=== PATIENT | female | born 1950 | race Caucasian/White ===

== ENCOUNTER 2022-09-28 16:30 | Outpatient (RCR) | payer MEDICARE, SELFPAY ==
--- NOTE | 2022-08-24 16:34 | OT.OPOE ---
OT Outpatient Ortho Eval OT Outpatient Ortho Eval* Start: 08/23/22 13:18 Freq: Status: Active Protocol: Document 08/24/22 12:04 AMB (Rec: 08/24/22 16:30 AMB [id number]) E-signed By Marycruz Robles, OTR/L, CLT, COUNTER HOP OT OP Ortho Eval Details Complexity Complexity Low Insurance Information Insurance Information [facility] Outpatient History/Precautions Current Condition/Medical Diagnosis Referring Provider Dr Moore Treatment Diagnosis RUE TF of the MF Date of Onset Chronic Medical Conditions Metal Implants Other Conditions PMH: (copied from ortho chart) Active Problems (Updated 08/06 @ 14:00 by Nany Quezada ~ RN, RN) Trigger finger, right middle finger (Acute) M65.331 - Trigger finger, right middle finger (ICD-10) Medical History (Updated 08/06 @ 14:00 by Nany Quezada ~ RN, RN) Kidney stone N20.0 - Calculus of kidney ( ICD-10) Surgical History (Updated @ 13:37 by Fany Ruth ~ SIMPLEX PRINTER INSTALLER, SIMPLEX PRINTER INSTALLER) History of total right knee replacement (~2015) Z96.651 - Presence of right artificial knee joint (ICD-10) Medical/Functional History Medical History Reviewed Yes Social History Employment Status [employer] Employed Current Occupation Realtor Critical Job Demands Static Sitting Other Critical Job Demands Typing / writing Ortho Subjective Subjective Subjective Pt states she started noticing tightness and pain in her finger about 4 months ago, does not recall any trauma and does not feel she does a lot of repetitive activities, typing for work but states that's maybe a couple hours per day. Pt states her finger does not lock on a regular basis but it does click and sometimes pops into extension when she has closed her fist and then went to open it. Pt has had some relief with Voltarin. Pain Assessment Pain Present Pain Present Pain Reported Location Right Hand Description Tightness,Sharp,Dull, Achy Intensity 5 Range of Motion and Strength Hand/Finger/Thumb Range of Motion and Strength Hand/Finger/Thumb Range of Motion and 08/24/22 AROM of BUE is WNL with Strength the exception of the RUE 3rd digit. AROM of the RUE MF MP joint is 0-65, PIP is 0-85, DIP is 0-55. Hand Pinch/Cloth Shrinking Tester Strength Comments Comments 08/24/22 Strength testing was deferred today OT Objective Data Hand Hand Dominance Right Additional Information Objective Additional Information 08/24/22 Palpable stenosing noted at the RUE 3rd digit A1 olman when completing composite finger flexion, also quite ttp at the A1 olman of this finger. OT Problems Problems Problems Decreased Strength,Decreased Range of Motion,Decreased Dexterity,Gripping Other Problems Writing,Opening Containers, Fasteners Patient Potential Good Assessment Assessment Assessment Pt presents to OT with complaints of pain and clicking/popping in her RUE 3rd digit, states she also notes generalized weakness in her hand when she has to pull weeds or carry things. Pt will benefit from skilled OT intervention to address pain, weakness and inflammation in the RUE in order to restore, full, pain-free use with ADLs and IADLs. Occupational Therapy Treatment Plan - OP Potential Rehabilitation Potential Good Set Goals Goals Set with Patient Yes Goals Goals 1. Pt will be independent and compliant with HEP in order to resume full, pain-free use of the involved UE. 3 weeks 2. Pt will demonstrate full, pain-free AROM of the involved UE in order to improve ability to grasp and hold. 6 weeks 3. Pt will demonstrate pain- free dielectric tester and pinch strength comparable to the uninvolved side in order to improve functional grasp, hold, reach, and lifting ability needed to complete self-care, leisure tasks, and work activities. 8 weeks. 4. Pt will report at least 5 consecutive days without painful stenosing / catching in her RUE 3rd digit indicating healing and resolution of inflammation. 8 weeks Treatment Plan Treatment Plan Evaluation,Edema Control, Iontophoresis,Joint Mobilization,Manual Therapy, Splinting,Ultrasound, Therapeutic Exercise, Therapeutic Activities,Self Care/Home Management,Education Expected Frequency 1-2x Week Expected Duration 8-10 Weeks Home Program Home Program Home Program Initiated Home Program Specifics Provided training and practice in HEP for differential tendon glides avoiding full motions that cause stenosing. Following demo, pt is able to complete exs with minimal cues. Pt was provided with written inst for home as well. Certification Certification I Certify That: Therapy Services Provided, Therapy Plan Established, Therapy Plan Reviewed Recertification Information Recertification Information Initial Certification Date 08/24/22 Recertification Due Date 11/22/22 Reasons to Continue Skilled Therapy Initiating OT today to address pain, weakness and limited AROM in the RUE hand secondary to TF of the 3rd digit. Rehabilitation Potential Good Continued Plan of Care and Interventions Please see POC above. Provider Signature Shows Agreement With POC & Medical Necessity Physician Comment/Change Comment or Changes Physician NPI Number #
== END 2023-01-02 16:00 | disposition home or self-care (01) ==
PROVIDERS: PCP Family Medicine; Visit Provider Orthopaedic Surgery
DX: M65.331 Trigger finger, right middle finger (principal); Z51.89 Encounter for other specified aftercare
CPT/HCPCS: 97033; 97035; 97110; 97140; 97165; X5282

== ENCOUNTER 2024-06-08 09:27 | Emergency (ER) | payer MEDICARE, SELFPAY ==
--- OUTSIDE RECORDS SUMMARY | 2024-06-08 09:31 | XMS_ITS | Clinical Summary ---
Author Organization [facility] Address [address] [place] [address] Care Team Providers Care Bullet Lubricant Mixer Name Role Phone Needs Pcp, Assignment Primary Care Provider [phone] Source Comments You are receiving this document as you are listed as the primary care provider,follow-up provider, or the patient has been referred to you for consultation.This is in compliance with the Medicare and[facility] Incentive [facility],which states Providers who transition their patient to another setting of careor provider of care or refers their patient to another provider of care shouldprovide summary care record for each transition of care or referral. [employer] Allergies No known active allergies Medications * This document contains information received from the source organization and may not represent a complete record from that organization. CALCIUM-VITAMIN D OR Take 1 Tab by mouth daily. Active Multiple Vitamins-Mineral s (CENTRUM SILVER 50+WOMEN OR) Take 1 Tab by mouth daily. 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 Dr [facility] TMJ arthralgia 12/31/2011 08/25/2012 Immunizations Immunization Administration Dates Next Due Flu Vac Preserv Free (3+yrs) 04/06/2006 Influenza ([place] Only) (Flulaval Quad 0.5, 3+ yr s) 01/18/2016 Influenza IIV3 (Trivalent) F luzone Highdose, 65+ Yrs (17320) 12/11/2019,11/05/2018 Influenza IIV4 (Quadrivalent) 0.5mL (17163) 03/2014 Influenza aIIV3 65+ Years (Fluad) 12/20/2017, Moderna Monovalent 12+ 04/20/2020,03/23/2020 OPV, Trivalent (Orimune or tOPV) 04/22/1986 PCV13 (Prevnar) 08/17/2016 PPSV23 (Pneumovax) 09/19/2017 TDAP (ADACEL) 08/16/2005 Td (7+ yrs) 08/17/2016 Zoster (Zostavax) 03/08/2012 Family History Medical History Relation Name Comments Cancer Father panreatic Cancer, Pancreas[Other] Father kidney stones[Other] Father Cancer, Breast Mother lived to 90 Osteoporosis Mother Other[Other] Mother Cancer, Colon Maternal Grandmother Cancer, Breast Paternal Aunt Cancer Paternal Grandfather prostat e Stroke Paternal Grandmother Cancer, Ovary Negative Family History Relation Name Status Comments Father (Age 65) Mother (Age 90) Maternal Grandmother Paternal Aunt Paternal Grandfather Paternal Grandmother Social History Tobacco Use Types Packs/Day Years Used Date Smoking Tobacco: Some Days Cigarettes 0.3 10 Started: 02/18/2003; Last attempted to quit: 02/18/2013 Smokeless Tobacco: Never Tobacco Cessation:Counseling Given: No Comments:less than 2 a week Alcohol Use Standard Drinks/Week Comments Yes 1 (1 standard drink = 0.6 oz pur e alcohol) rare PHQ-2 Answer Date Recorded PHQ-2 Score 0 09/28/2020 Comments No Sex and Gender Information Value Date Recorded Sex Assigned at Not on file Legal Sex Female 10:44 AM STATISTICAL REPORTING ANALYST Gender Identity Not on file Sexual Orientation Not on file 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 Not on file Not on file Last Filed Vital Signs Vital Sign Reading Time Taken Comments Blood Pressure 132/76 09/28/2020 9:48 AM CDT Pulse 68 09/28/2020 9:48 AM CDT Temperature 37.2 C (99 F) 03/19/2018 1:50 PM STATISTICAL REPORTING ANALYST Respiratory Rate 14 12/21/2015 12:49 PM CDT Oxygen Saturation 96% 11/05/2018 9:11 AM CDT Inhaled Oxygen Concentration - - Weight 91.6 kg (202 lb) 09/28/2020 9:48 AM CDT Height 170.2 cm (5' 7) 09/28/2020 9:48 AM CDT Body Mass Index 31.64 09/28/2020 9:48 AM CDT Plan of Treatment Health Maintenance Due Date Last Done Comments Zoster/Shingles Vaccine (2 of 3) 05/03/2012 03/08/2012 Mammogram 01/26/2021 01/27/2020, 11/19, 10/08/2017, Additional history exists Colonoscopy 07/19/2021 07/20/2011 (Completed) Prediabetes: HGBA1C 09/28/2021 09/28/2020 COVID-19 Vaccine ( season) 2023 04/20/2020, 03/23/2020 Influenza Vaccine (#1) 2023 , 11/05/2018, 12/20/2017, Additional history exists Medicare Annual Wellness Visit 02/19/2024 09/28/2020, 09/19/2017 Cholesterol 09/28/2025 09/28/2020, 11/18, 09/19/2017, Additional history exists RSV Vaccine (1 - 1-dose 75+ series) 07/07/2026 DTaP/Tdap/Td Vaccine (3 - Tdap) 08/17/2026 08/17/2016, 08/16/2005 IPV (Polio) Vaccine Aged Out 04/22/1986 No longe r eligible based on patient's age to complete this topic Dexa Completed 09/05/2015 Hep C Screening (Preventive Services) Completed 09/19/2017 Pneumococcal Vaccine 50+ Yrs Completed 09/19/2017, 08/17/2016 HepA Vaccine Aged Out No longer eligi ble based on patient's age to complete this topic HepB Vaccine Aged Out No longer eligi ble based on patient's age to complete this topic Hib Vaccine Aged Out No longer eligi ble based on patient's age to complete this topic MCV4 Vaccine Aged Out No longer eligi ble based on patient's age to complete this topic Meningococcal B Vaccine Aged Out No l onger eligible based on patient's age to complete this topic Procedures Procedure Name Priority Date/Time Associated Diagnosis Comments HGB A1C Routine 09/28/2020 10:42 AM CDT Impaired fasting glucose LIPID PANEL & DIRECT LDL (IF NEEDED) Routine 09/28/2020 10:42 AM CDT Preventative health care MM MAMMOGRAM SCREENING BILAT W CAD Routine 01/27/2020 3:17 PM STATISTICAL REPORTING ANALYST Visit for screening mammogram HEPATITIS C ANTIBODY, WITH REFLEX Routine 09/19/2017 10:40 AM CDT Need for hepatitis C screening test DXA BONE DENSITY SPINE/HIP Routine 09/05/2015 11:49 AM CDT Menopausal state from Last 3 Months or Most Recently Relevant to Health Maintenance Results * Lipid Panel and Direct LDL(If Needed) (09/28/2020 10:42 AM CDT) Cholesterol 188 0 - 199 mg/dL 09/28/2020 1:02 PM CDT [facility] Triglyceride 59 <=149 mg/dL 09/28/2020 1:02 PM CDT [facility] HDL Cholesterol 72 >=40 mg/dL 1:02 PM CDT [facility] LDL, Calculated 104 <130 mg/dL 1:02 PM CDT [facility] Non HDL Chol, Calculated 116 <=159 mg/dL 09/28/2020 1:02 PM CDT [facility] Cholesterol/HDL Ratio 2.6 09/28/2020 1:02 PM CDT [facility] Hours Fasting 12 09/28/2020 1:02 PM CDT [facility] Blood Venipuncture / Unknown 09/28/2020 10:42 AM CDT 09/28/2020 10:42 AM CDT Basilia Mendez MD LAB_1 Final Resul t [facility] [address] [place], [place] [address] [address] [place] [address], [facility] [phone] * (ABNORMAL) Hemoglobin A1C Glycosylated (09/28/2020 10:42 AM CDT) Hemoglobin A1C 5.7(H) <=5.6 % 09/28/2020 8:36 PM CDT [facility] Blood Venipuncture / Unknown 09/28/2020 10:42 AM CDT 09/28/2020 10:42 AM CDT Narrative [facility] - 09/28/2020 8:36 PM CDT For patients not previously diagnosed with diabetes: 5.7-6.4%: Increased risk for diabetes 6.5% and greater: Diagnostic for diabetes For patients diagnosed with diabetes: <8.0%: Goal of therapy for ages 18-75 Clinicians may recommend a higher or lower goal for specific individuals. Basilia Mendez MD LAB_1 Final Resul t [facility] [address] [address], [facility] [phone] * MM Mammogram Screening Bilat W CAD (01/27/2020 3:17 PM STATISTICAL REPORTING ANALYST) Anatomical Region Laterality Modality Breast Bilateral Mammography Impressions 01/27/2020 3:28 PM STATISTICAL REPORTING ANALYST : ACR BI-RADS Category 1: Negative RECOMMENDATION: Follow Up Imaging in 12 months - Bilateral The results and recommendations of this examination will be communicated to the patient. Narrative 01/27/2020 3:28 PM STATISTICAL REPORTING ANALYST MM MAMMOGRAM SCREENING BILAT W CAD performed on 01/27/20 Compared to: 12/16/2018 MM Mammogram Screening Bilat W CAD, 10/08/2017 MM Mammogram Screening Bilat W CAD, and 09/11/2016 MM Mammogram Screening Bilat W Arturo W CAD FINDINGS: Bilateral screening mammogram was performed with the assistance of Computer-Aided Detection . The breasts have scattered areas of fibroglandular density. There is no radiographic evidence of malignancy. Basilia Mendez MD [facility] [place] Final Resul t * Hepatitis C Virus Cecile with Reflex (09/19/2017 10:40 AM CDT) Hepatitis C Antibody Nonreactive Nonreactive PN SOFT 09/19/2017 10:4 0 AM CDT 09/19/2017 12:23 PM CDT Narrative PN SOFT - 09/19/2017 1:34 PM CDT Performed at [facility], [address] [place] [address] CLIA number [id number] Basilia Mendez MD LAB_1 Final Resul t SOFT [address] [place] [id number] * DEXA Bone Density Spine/Hip (09/05/2015 11:49 AM CDT) Anatomical Region Laterality Modality Lower Extremity, Spine, Hip, L-Spine Other Narrative 09/07/2015 8:06 AM CDT CLINIC DXA REPORT Patient Name: Trinh Bucio Dev [place]: Deepak Campbell M.D. Densitometer: HiConversion W (S/N [id number]) - Bone 1 OSTEOPOROSIS RISK FACTORS FROM PATIENT QUESTIONNAIRE: The patient is a 65 y.o.female. 14 years estrogen deficient, family history (mother hip fracture). BONE MINERAL DENSITY: Lumbar Spine Vertebrae Included: L1;L2;L3;L4 Bone Mineral Density (gm/cm2): 1.06 T-Score: 0.1 Z-Score: 1.8 Total Hip Bone Mineral Density (gm/cm2): 0.86 T-Score: -0.7 Z-Score: 0.5 Femoral Neck Bone Mineral Density (gm/cm2): 0.74 T-Score: -1 Z-Score: 0.5 VFA (Vertebral Fracture Assessment) (T4-L4). SEE SCANS IF PERFORMED: No vertebral deformities consistent with fracture were noted. ASSESSMENT: 1: Based on the lowest T score at the femoral neck the diagnosis is normal bone density. 2: Fracture risk assessment: This patient is at low 10 year future fracture risk based on age, ethnicity, densitometry, and other BMD-independent risk factors, listed above. See different fracture risk categories below under definitions. RECOMMENDATIONS: 1: Ensure adequate calcium and vitamin D intake 2: Consider repeat bone density in 10 years unless factors affecting bone health change. Definitions (T-Score = Standard deviations above/below mean peak adult) (Z-Score = Standard deviations above/below mean age/sex-matched peers) ISCD Standards: For a more accurate fracture risk assessment, reference data is used for all ethnic groups and the 1/3 region is reported for the forearm. WHO DEFINITIONS: Normal BMD: T-score ? -1.0 Osteopenia: T-score between -1.0 and -2.5 Osteoporosis: T-score ? -2.5 FRAX Score : The FRAX algorithms give the 10-year probability of fracture. The output is a 10-year probability of hip fracture and the 10-year probability of a major osteoporotic fracture (clinical spine, forearm, hip or shoulder fracture). The FRAX score takes into account the bone density, but also age, gender, weight, height, previous fracture, parental hip fracture, smoking status, glucocorticoid intake, history of RA, secondary osteoporosis, and high alcohol intake in determining fracture risk in patients with osteopenia and osteoporosis. FRAX and Fracture Risk Categories in terms of major osteoporotic fracture risk (clinical spine, forearm, hip, or shoulder): < 10% = low fracture risk ? 10% and <15% = mildly increased fracture risk ? 15% and <20% = moderately increased fracture risk ? 20% and <30% = high fracture risk ? 30% = very high fracture risk A clinician may consider FDA-approved medical therapies in postmenopausal women and men aged 50 years and older, if one or more of the following is present (clinical correlation required and therapy may not always be indicated): 1. The patient has a hip or vertebral (clinical or morphometric) fracture. 2. T-score ? -2.5 at the femoral neck, hip, or spine after appropriate evaluation to exclude secondary causes. 3. Low bone mass (T-score between -1.0 and -2.5 at the femoral neck, hip or spine) and a 10-year probability of a hip fracture ? 3% or a 10-year probability of a major osteoporosis-related fracture ? 20% based on the FRAX scores. 4. Clinicians judgment and/or patient preferences may result in a decision to patients with 10-year fracture probabilities above or below these levels. Basilia Mendez MD RAD DEXA Final Resul t from Last 3 Months or Most Recently Relevant to Health Maintenance Insurance MEDICARE [facility] Advance Directives Documents on File Type Date Recorded Patient Network Lead Expl anation Advance Directive/Living Will/Durable Power of Attny on file/POLST PN 01/06/2015 1:09 PM Care Teams Bullet Lubricant Mixer Relationship Specialty Start Date End Date Needs Pcp, [place] [address] PCP - General 09/09/23
--- OUTSIDE RECORDS SUMMARY | 2024-06-08 09:31 | XMS_ITS | Clinical Summary ---
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 Active calcium carbonate/jonah min D2 (CALCIUM + VITAMIN D ORAL) Take 2 Tablets by mouth once daily. Active diclofenac topical (VOLTAREN) 1 % gel Apply 2 g topically to affected area(s) 4 times daily. 0 2 Active amoxicillin (AMOXIL) 500 mg capsule Take 2,000 mg by mouth one time if needed (TAKE 4 CAPSULES BY MOUTH 1 HOUR BEFORE APPOINTMENT). 3 Active acetaminophen (TYLENOL EXTRA STRGTH) 500 mg tabletIndicati ons:Chronic pain of both knees Take 1 Tablet (500 mg) by mouth once daily with a meal. Max acetaminophen dose: 4000mg in 24 hrs. 4 Active albuterol HFA (PRO-AIR; VENTOLIN; PROVENTIL) 90 mcg/actuation inhalerIndicat ions:Pertussis -like syndrome Inhale 1-2 Puffs by mouth every 4 hours if needed for Shortness Of Breath or Wheezing. 1 Each 4 Active Active Problems Problem Noted Date Diagnosed Date Colon polyp 10/05/2021 Overview (10/05/2021): Colonoscopy 09/2021 SSA, repeat in 5 years Kidney stones 07/20/2021 Arthritis of knee 07/20/2021 Tendonitis, Achilles, right 07/20/2021 Tendonitis, Achilles, left 07/20/2021 Encounters Date Type Department Care Team Description 06/08/2024 Nurse Triage [facility] [address] [place] [address] Chica Barboza MD Cough from Last 3 Months Immunizations Immunization Administration Dates Next Due COVID-19 vaccine (Moderna 10 0mcg/0.5mL) PF, MDV 06/16/2022,04/20/2020,03/23/2020 COVID-19 vaccine (Pfizer-Bio NTech 30mcg/0.3mL) 12YO+ BIVALENT PF, MDV 11/13/2021 Influenza A (H1N1), Inactivated 03/02/2009 Influenza Virus, Unspecified 01/18/2016 Influenza, High-dose Inactivated 12/06/2020,11/19,11/05/2018 Influenza, High-dose Quadriv alent Inactivated 11/18/2021 Influenza, IIV3 (Age >=3 years) 11/15/2011,04/06,01/20/2002 Influenza, IIV4 12/20/2014 Influenza, Inactivated AIIV4 (Age 65+ Years) Preserv Free 11/17/2022 Influenza, Inactivated IIV3 (Age 65+ Years) Preserv Free 12/20/2017,12/31/2016 Oral Polio Vaccine 04/22/1986 Pneumococcal Poly,23-Valent (Pneumovax) 09/20/19 18 Pneumococcal conj 13-Valent (Prevnar 13) 017 RSV, Recombinant ADJ Reconst ituted (Arexvy 120MCG/0.5mL) 11/25/2022 Td (Age >=7 Years) 08/17/2016 Td, Preservative Free (age >= 7 Years) 7 Tdap 08/16/2005 Varicella Vaccine 12/13/2011,11/15/2011 Zoster (Shingrix-RZV, recombinant) 12/25/2021, Zoster (Zostavax-ZVL, live) 09/19/2012, 3 Family History Medical History Relation Name Comments Cancer-pancreatic Father Cancer Maternal Grandmother Cancer-breast Mother Cancer Paternal Grandfather Heart Disease Paternal Grandmother Relation Name Status Comments Father Maternal Grandfather Maternal Grandmother Mother Paternal Grandfather Paternal Grandmother Social History Tobacco Use Types Packs/Day Years Used Date Smoking Tobacco: Former Smokeless Tobacco: Never Tobacco Cessation:Counseling Given: Yes Alcohol Use Standard Drinks/Week Comments Not Currently 0 (1 standard drink = 0.6 oz pur e alcohol) PHQ-2 Answer Date Recorded PHQ-2 TOTAL SCORE 0 07/30/2023 Social Connections Answer Date Recorded Do you often feel lonely or isolated from those around you? 0 07/30/2023 Financial Resource Strain Answer Date R ecorded Difficulty of Paying Living Expenses 3 07/30/2023 Difficulty of Paying Living Expenses Not on file 07/30/2023 Food Insecurity Answer Date Recorded Do you worry your food will run out before you are able to buy more? 1 07/30/2023 Transportation Needs Answer Date Record ed Does lack of transportation keep you from medica l appointments? 1 07/30/2023 Does lack of transportation keep you from work, meetings or getting things that you need? 1 07/30/2023 Housing Stability Answer Date Recorded What is your housing situation today? 1 07/30/2023 Utilities Answer Date Recorded Do you have trouble paying f or utilities (for example, heat, electricity, water, phone)? 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 Gender Identity Not on file Sexual Orientation Not on file Obstetrics History Last Filed Vital Signs Vital Sign Reading Time Taken Comments Blood Pressure 156/74 01/31/2024 1:07 PM LEAD PRINCIPAL TECHNICAL ARCHITECT Pulse 80 01/31/2024 1:07 PM LEAD PRINCIPAL TECHNICAL ARCHITECT Temperature 36.9 C (98.4 F) 01/31/2024 1:07 PM LEAD PRINCIPAL TECHNICAL ARCHITECT Respiratory Rate - - Oxygen Saturation 97% 01/31/2024 1:07 PM LEAD PRINCIPAL TECHNICAL ARCHITECT Inhaled Oxygen Concentration - - Weight 98.4 kg (217 lb) 01/31/2024 1:07 PM LEAD PRINCIPAL TECHNICAL ARCHITECT Height 170.2 cm (5' 7) 07/30/2023 9:56 AM CDT Body Mass Index 33.99 07/30/2023 9:56 AM CDT Plan of Treatment Health Maintenance Due Date Last Done Comments Hepatitis C screening for ag e 18-79 07/07/1968 COVID-19 vaccine series ( season) 2024 11/15/2023, 05/05/2023, 11/21/2022, Additional history exists BMI (ht and wt on same day) for age 18+ 07/29/2024 07/30/2023, 07/24/2022, 07/20/2021 Depression screening for age 12+ 07/29/2024 07/30/2023, 07/24/2022, 07/20/2021 Medicare Wellness for age 65+ 07/30/2024, 07/24/2022, 07/20/2021 Mammogram for age 45-75 08/08/2024 08/09/19 24, 08/07/2022, 08/01/2021 Influenza Vaccine (Season Ended) 2024 11/17/2022, 12/06/2020, 12/11/2019, Additional history exists Tetanus booster 08/17/2026 08/17/2016, 07/21, 08/16/2005 Colonoscopy through age 75 10/04/2026 10/04/2021, Lipids for age 45-75 07/25/2027 07/24/2022 Tdap Completed 08/16/2005 Pneumococcal series for age 50+ Completed 8, 08/17/2016 Zoster (shingles) series for age 50+ Completed 12/25/2021, 08/12/2021, 09/19/2012, Additional history exists DEXA/DXA scan for age 65+ Completed 08/07/2022 RSV vaccine for adults or Completed 11/25/2022 Procedures Procedure Name Priority Date/Time Associated Diagnosis Comments XR MAMMO RAMON BILAT SCREEN Routine 08/09/2023 11:08 AM CDT Visit for screening mammogram XR DXA BONE DENSITY 2 SITES AXIAL Routine 08/07/2022 2:42 PM CDT Menopause LIPID PANEL W REFLEX MEASURED LDL Routine 07/24/2022 11:47 AM CDT Lipid screening COLONOSCOPY 10/04/2021 10:35 AM CDT from Last 3 Months or Most Recently Relevant to Health Maintenance Results * XR MAMMO RAMON BILAT SCREEN (08/09/2023 11:08 AM CDT) Anatomical Region Laterality Modality BREASTS, Breast Left, Breast Right Bilateral Mammography Impressions 08/09/2023 2:46 PM CDT There is no radiographic evidence for malignancy. Recommend annual mammograms. MAMMOGRAM ASSESSMENT: ACR 1 Negative PATIENTS: You will also receive a letter with your examination results in an easy to read format. If you have questions about your results, please contact your referring provider. Narrative 08/09/2023 2:46 PM CDT For Patients: As a result of the Cures Act, medical imaging exams and procedure reports are released immediately into your electronic medical record. You may view this report before your referring provider. If you have questions, please contact your health care provider. XR MAMMO RAMON BILAT SCREEN [[id number]] CLINICAL HISTORY: This is an asymptomatic 73 y.o. patient. INDICATION FOR EXAM: Mammogram Screening. TECHNIQUE: CC & MLO views were obtained. This study was evaluated with the assistance of Computer-Aided Detection. Breast Tomosynthesis was used in interpretation. COMPARISON FILM: Yes 08/07/22 [facility] 08/01/21 [facility] FINDINGS: There are scattered areas of fibroglandular density. There are no dominant masses, suspicious micro calcifications or areas of architectural distortion. us Chica Barboza MD MAMMO Final Result * (ABNORMAL) XR DXA BONE DENSITY 2 SITES AXIAL [[id number]] (08/07/2022 2:42 PM CDT) Anatomical Region Laterality Modality Spine, HIPS, HIPL, HIPR Other Impressions 08/23/2022 12:44 PM CDT Osteopenia. RECOMMENDATIONS: The National Osteoporosis Foundation recommends pharmacologic treatment for patients with T-scores of -2.5 or less, patients with prior history of fragility fractures, or patients with 10-year probability of greater than 3% at hips or greater than 20% of suffering major osteoporotic fractures. Recommend continued optimization of calcium and vitamin D intake through dietary means and/or supplementation and regular exercise. Consider pharmacologic therapy for osteopenia with increased fracture risk. Follow-up bone density reading in 2 years if therapy initiated to assess therapeutic efficacy. Elida Goddard PA-C [facility] 08/23/2022 Narrative 08/23/2022 12:44 PM CDT For Patients: Results are automatically released to your [facility] account once available, in compliance with federal regulations. This means that you may see your results before your provider has had a chance to review them. Please allow 2-3 business days for your provider to comment on the results. XR DXA Bone Mineral Density (BMD) EXAM LOCATION: [address] [address] PATIENT NAME: Trinh Méndez DATE OF : 1950 EXAM DATE: 08/07/2022 REQUESTING PROVIDER: Chica Barboza MD GENDER AT : female HEIGHT: 5' 7 (07/24/2022) WEIGHT: 211 lb 3.2 oz (07/24/2022) MENOPAUSAL STATUS: Postmenopausal RACE/ETHNICITY: White RISK FACTORS: Family History of Hip Fracture (parental), Height Loss (2 inches or more), Smoking (prior), and White Race CURRENT MEDICATION FOR BONE LOSS: NONE INDICATION: Menopause COMPARISON DATE(S): None DXA scans are compared to prior studies for a patient only when the two (or more) studies were performed on the same scanner. It is not possible to compare data generated on one scanner to data from another because there are not standards in DXA equipment. This applies even if the two scanners are made by the same commissioned fire officer. PROCEDURE: Dual-energy x-ray absorptiometry performed with routine technique. Reporting is completed in the form of a T-score. The T-score represents the standard deviation from peak bone mass based on young healthy adult. A Z-score is used for diagnosis in premenopausal women, and for men under the age of 50. FINDINGS: RESULT LUMBAR SPINE L1 - L4 BMD: 1.221 g/cm2 T-Score: + 0.2 Z-Score: + 0.9 Change from prior: None RESULTS FEMUR Left femoral neck BMD: 0.805 g/cm2 T-Score: - 1.7 Z-Score: - 0.6 Change from prior: None Right femoral neck BMD: 0.804 g/cm2 T-Score: - 1.7 Z-Score: - 0.6 Change from prior: None Left hip BMD: 0.861 g/cm2 T-Score: - 1.2 Z-Score: - 0.4 Change from prior: None Right hip BMD: 0.874 g/cm2 T-Score: - 1.1 Z-Score: - 0.3 Change from prior: None WHO criteria: Normal: T-score at or above -1 SD Osteopenia: T-score between -1.1 and -2.4 SD Osteoporosis: T-score at or below -2.5 SD FRAX RISK CALCULATION (USED FOR OSTEOPENIA ONLY): 10-year probability of major osteoporotic fracture: 15.9%. 10-year probability of hip fracture: 4.1%. Chica Barboza MD DEXA Final Result * LIPID PANEL W REFLEX MEASURED LDL (07/24/2022 11:47 AM CDT) [facility] CHOLESTEROL,TOTAL 185 100 - 199 mg/dL 07/25/2022 1:30 AM T [facility] Comment: Cholesterol, Total Reference Ranges Desirable <200 mg/dL Borderline 200-239 mg/dL High >=240 mg/dL TRIGLYCERIDES 60 <150 mg/dL 07/25/2022 1:30 AM CDT [facility] HDL CHOLESTEROL 67 >40 mg/dL 1:30 AM T [facility] NON-HDL CHOLESTEROL 118 <145 mg/dl 07/25/2022 1:30 AM CDT [facility] CHOL/HDL RATIO 2.76 <4.50 07/25/2022 1:30 AM CDT [facility] LDL CHOLESTEROL 106 <=130 mg/dL 07/25/2022 1:30 AM T [facility] VLDL CHOLESTEROL 12 <=30 mg/dL 07/25/2022 1:30 AM T [facility] PROVIDER ORDERED STATUS RANDOM 07/25/2022 1:30 AM CDT [facility] Blood BLOOD SPECIMEN / Unknown Venipuncture / Unknown 07/24/2022 11:47 AM CDT 07/24/2022 11:48 AM CDT us Chica Barboza MD CHEMISTRY Final Result [facility] [address] [place] [address], [place] * COLONOSCOPY (10/04/2021 10:35 AM CDT) 10/04/2021 10:3 5 AM CDT Narrative Transcriptions Arturo Silvestre MD - 10/04/2021 11:29 AM CDT Patient Name: Trinh Méndez Procedure Date: 10/04/2021 Gender: Female Date of : 1950 Admit Type: Outpatient Procedure: Colonoscopy Proceduralist: Arturo Silvestre MD , Sandy Carey, LISA(Nurse) Indications/Pre-Op Diagnosis: Screening for colorectal malignant neoplasm, Last colonoscopy: July 2011 Medications: Fentanyl 100 micrograms IV, Midazolam 2 mgIV Procedure Description: The patient had risks, benefits and alternatives explained to andgave informed consent. The patient had a stable cardiopulmonary status and judged an adequate candidate for conscious sedation. The colonoscope was passed through the anus and advanced to thececum, identified by appendiceal orifice and ileocecal valve. Thecolonoscopy was performed without difficulty. The patient tolerated the procedure well. The quality of the bowel preparation was good. The ileocecal valve, appendiceal orifice, and rectum were photographed. Complications: No immediate complications. Estimated Blood Loss & Specimen: Estimated blood loss: none. Specimen collected - Yes and sent to Laboratory Findings: The perianal and digital rectal examinations were normal. Two sessile polyps were found in the ascending colon. The polyps were3 mm in size. These polyps were removed with a cold biopsy forceps. Resection and retrieval were complete. The exam was otherwise without abnormality. Impressions/Post-Op Diagnosis: - Two 3 mm polyps in the ascending colon, removed with a cold biopsy forceps. Resected and retrieved. - The examination was otherwise normal. Recommendation: - Patient has a contact number available for emergencies. The signsand symptoms of potential delayed complications were discussed with the patient. Return to normal activities tomorrow. Written discharge instructions were provided to the patient. - Resume previous diet. - Continue present medications. - Await pathology results. - Repeat colonoscopy is recommended. The colonoscopy date will be determined after pathology results from today's exam become available for review. Moderate Sedation: Moderate (conscious) sedation was administered by the endoscopy nurse and supervised by the endoscopist. The following parameters were monitored: oxygen saturation, heart rate, respiratory rate, blood pressure, adequacy of pulmonary ventilation and reponse to care. Please refer to the patient's medical record flowsheets and nursing notes for moderate sedation details. Total physician intraservice time was 24 minutes. Arturo Silvestre MD 10/04/2021 11:29:33 AM This report has been signed electronically. Note Initiated On: 10/04/2021 10:35 AM Procedure Code(s): --- Professional --- 79046, Colonoscopy, flexible; with biopsy, single or multiple Diagnosis Code(s): --- Professional --- Z12.11, Encounter for screening formalignant neoplasm of colon D12.2, Benign neoplasm of ascending colon CPT copyright 2020 [employer]. All rights reserved. The codes documented in this report are preliminary and upon correctional casework specialist reviewmay be revised to meet current compliance requirements. Scope In: 10:59:32 AM Scope Withdrawal Time 0 hours 9 minutes 19 seconds Scope Out: 11:21:35 AM us Arturo Silvestre MD PROCEDURE ORD Final Res ult from Last 3 Months or Most Recently Relevant to Health Maintenance Insurance 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
[2024-06-08 09:34] VITALS: BP 133/78; PULSE 72; RESP 18; TEMP 35.9; O2SAT 95; BMI 30.5
--- NOTE | 2024-06-08 09:56 | ED_ITS ---
HPI - General Adult General Time Seen by Provider: 09:56 Date Seen: 06/08/24 Chief complaint: Cough Stated complaint: feels like she has Bronchitis Time Seen by Provider: 06/08/24 09:55 Source: patient, RN notes reviewed and old records reviewed Mode of arrival: ambulatory Limitations: no limitations History of Present Illness HPI narrative: This 73-year-old female is coming in with concern of cough, states she feels like she is getting bronchitis. She states she has had a history of bronchitis. She does not have a history of asthma or COPD, no current smoking but note she does have a history of this in her chart. She contacted her primary care provider in clinic at [facility] but they had no same day appointments and advised her to come to the ER. Her symptoms started on Saturday. She did do a home COVID test which was negative this morning. She felt a little warm this morning but no documented fever here. She is coughing, felt like she could hear rattling in her chest last night. She is coughing up scant amounts of clear phlegm. Her ears feel tight. She feels the chest raspiness and coughing or worsening, worried she is getting bronchitis. Related Data Home Medications ?Medication ?Instructions ?Recorded ?Confirmed multivitamin (Multiple Vitamins 1 tab PO QDAY 08/06/22 06/08/24 tablet) calcium carb-ergocalciferol (vit 2 tab PO QDAY 09/24/22 06/08/24 D2) 600 mg calcium-200 unit tablet ibuprofen 200 mg tablet 400 mg PO Q8H 08/14/23 06/08/24 Allergies Allergy/AdvReac Type Severity Reaction Status Date / Time No Known Drug Allergies Allergy Verified 06/08/24 09:34 Review of Systems Status of ROS: Reports: 6 or more systems reviewed and unremarkable except as noted in History and below [facility] Medical History Kidney stone ?N20.0 - Calculus of kidney (ICD-10) Surgical History History of total right knee replacement (~2015) ?Z96.651 - Presence of right artificial knee joint (ICD-10) Family History Mother Breast cancer DVT (deep venous thrombosis) Social History Smoking Status: Former smoker What tobacco products do you use: cigarettes Smoking quit date/years: <= 15 years ago Do you use any of these nicotine containing products: None Second hand tobacco smoke exposure: No How often do you have a drink containing alcohol: monthly or less AUDIT-C Alcohol total score: 1 Non-prescribed substance use: former substance user Non-prescribed substance use details: thc as teenager Exam Const: Vital Signs, click to edit/add: Vital Signs - 24 hr 06/08/24 09:34 Temperature 96.6 F L Pulse Rate [Pulse Oximeter] 72 Respiratory Rate 18 Blood Pressure [Ri ght Upper Arm] 133/78 Pulse Oximetry 95 Oxygen Delivery Me thod Room Air This 73-year-old female is alert, interactive, no apparent distress. Able speak in complete sentences, note no significant hoarseness. She certainly has no stridor on examination. Pupils equal round reactive, sclera clear. TMs normal coloration, no erythema, no evidence of infection. Oropharynx normal mucosa, no exudates erythema. Neck is supple, no adenopathy or masses, no no jugular venous distension. Lungs are clear, no wheezing or crackles, no tachypnea, no accessory muscle use, no prolonged expiratory phase. CV regular rate and rhythm, no murmur, normal S1-S2, no S3-S4. Documenting provider has reviewed patient's vital signs: yes Course Course ED Course: Did discuss with patient that I do think we should look at the triple viral swab, she does agree to this. Will do a portable chest x-ray. Will discuss further with her about antibiotics, bronchitis and current CDC guidelines once I have seen her chest x-ray. Reevaluation(s) Time of Reevaluation #1: 11:29 Reevaluation #1: Have reviewed with Trinh her chest x-ray findings. Did recommend that she bring the report to her primary, consider doing CT chest noncontrast for further evaluation of the apical scarring, make sure there are no asbestos related changes. She is not aware of any history of exposure. We did discuss prior infections could do this as well. Respiratory therapy did come down and do a peak flow, measured about 320 which is reported to be adequate for her age category. We reviewed the chest x-ray is not showing any evidence of infection, triple viral swab is negative. Reviewed CDC guidelines and recommendations against treatment with antibiotics at this time. Vital Signs Vital signs: Initial Vital Signs Temperature 96.6 F L 06/08/24 09:34 Temperature Source Temporal Artery Scan 06/08/24 09:34 Pulse Rate 72 06/08/24 09:34 Pulse Rhythm Regular 06/08/24 09:34 Respiratory Rate 18 06/08/24 09:34 Blood Pressure 133/78 06/08/24 09:34 Blood Pressure Mean 96 06/08/24 09:34 Blood Pressure Position Sitting 06/08/24 09:34 Pulse Oximetry 95 06/08/24 09:34 Oxygen Delivery Method Room Air 06/08/24 09:34 Vital Signs Temperature 96.6 F L 06/08/24 09:34 Pulse Rate 72 06/08/24 09:34 Respiratory Rate 18 06/08/24 09:34 Blood Pressure 133/78 06/08/24 09:34 Pulse Oximetry 95 06/08/24 09:34 Oxygen Delivery Method Room Air 06/08/24 09:34 Temperature 96.6 F L 06/08/24 09:34 Pulse Rate 72 06/08/24 09:34 Respiratory Rate 18 06/08/24 09:34 Blood Pressure 133/78 06/08/24 09:34 Pulse Oximetry 95 06/08/24 09:34 Oxygen Delivery Method Room Air 06/08/24 09:34 Medical Decision Making Lab Data Lab results reviewed: Yes I reviewed the patient's lab results Labs: Lab Results 06/08/24 Range/Units 10:11 SARS-CoV-2 (PCR) Negative SARS-CoV-2 (Negative) Influenza Type A (PCR) Negative PCR FLU A (Negative) Influenza Type B (PCR) Negative PCR FLU B (Negative) RSV (PCR) Negative PCR RSV (Negative) Imaging Data Chest x-ray: Attestation: I have reviewed the pertinent imaging results. My impression: Did visualize chest x-ray, do not appreciate any acute infiltrate on my preliminary review. Radiologist's impression: Patient: TRINH MARCANO Facility:?[facility] Patient ID:?[id number] Site Patient ID:?[id number]. Site :?[id number] Study:?XRay-Chest PCXR-06/08/2024 10:35:17 AM Ordering Physician:Carl Miranda Final Report: INDICATION: Cough. FINDINGS: A single portable chest x-ray shows a normal cardiac silhouette. The lungs show mild biapical pleural-parenchymal probable scarring. No other focal pulmonary opacities. Sharp pleural margins. No pneumothorax. IMPRESSION: 1. Probable biapical pleural-parenchymal scarring. 2. No other focal pulmonary opacities identified. Dictated by Kael Archer MD @ 06/08/2024 10:48:21 AM Dictated by: Kael Archer MD @ 06/08/2024 10:48:33 (Electronic Signature) Discharge Plan Discharge Clinical Impression: Upper respiratory infection, viral Patient Disposition: Home, Self-Care Condition: Stable Instructions: Upper Respiratory Infection (ED) Additional Instructions: Stay hydrated, can use vaporizer or humidifier, warm showers to help your symptoms. Can use [id number] medicines for cough cold symptoms per package instructions as needed. If you start to develop fevers, feel you are worsening with increasing cough, difficulty breathing, shortness of breath or other concerns, do recommend re-evaluation. Otherwise would anticipate that within 7-10 days of the onset of illness that you should start improving. Activity Level: Activity as Tolerated Prescriptions: No Action ibuprofen 200 mg tablet 400 mg PO Q8H multivitamin [Multiple Vitamins] Tablet 1 tab PO QDAY calcium carbonate-vitamin D2 600 mg calcium- 200 unit tablet 2 tab PO QDAY Follow Up/Referrals: Chica Barboza MD [Primary Care Provider] - Stand Alone Forms: [facility] Info Instructions
--- NOTE | 2024-06-08 10:02 | CRLHL7_ITS ---
For Patients: As a result of the Cures Act, medical imaging exams and procedure reports are released immediately into your electronic medical record. You may view this report before your referring provider. If you have questions, please contact your health care provider. INDICATION: Cough. FINDINGS: A single portable chest x-ray shows a normal cardiac silhouette. The lungs show mild biapical pleural-parenchymal probable scarring. No other focal pulmonary opacities. Sharp pleural margins. No pneumothorax. IMPRESSION: 1. Probable biapical pleural-parenchymal scarring. 2. No other focal pulmonary opacities identified. Dictated by Kael Archer MD @ 06/08/2024 10:48:21 AM Dictated by: Kael Archer MD @ 06/08/2024 10:48:33 (Electronically Signed)
[2024-06-08 10:56] LABS: PCR FLU A Negative PCR FLU A (Negative); PCR FLU B Negative PCR FLU B (Negative); PCR RSV Negative PCR RSV (Negative); SARS PCR* Negative SARS-CoV-2 (Negative)
--- OUTSIDE RECORDS SUMMARY | 2024-06-08 11:00 | XMS_ITS | Clinical Summary ---
Author Organization [facility] Address [address] [place] [id number] Care Team Providers Care Stull Hewer Name Role Phone Chica Barboza MD Primary [...] Triage [facility] [address] [place] [address] Chica Barboza MD Cough from Last [...] on file Legal Sex Female 6:10 AM RELIEF MATE Gender Identity Not on file Sexual Orientation Not on file Obstetrics History Last Filed Vital Signs Vital Sign Reading Time Taken Comments Blood Pressure 156/74 01/31/2024 1:07 PM RELIEF MATE Pulse 80 01/31/2024 1:07 PM RELIEF MATE Temperature 36.9 C (98.4 F) 01/31/2024 1:07 PM RELIEF MATE Respiratory Rate - - Oxygen Saturation 97% 01/31/2024 1:07 PM RELIEF MATE Inhaled Oxygen Concentration - - Weight 98.4 kg (217 lb) 01/31/2024 1:07 PM RELIEF MATE Height 170.2 cm (5' 7) 07/30/2023 9:56 [...] care provider. XR MAMMO RAMON BILAT SCREEN [[id number]] CLINICAL HISTORY: This is an asymptomatic 73 [...] XR DXA BONE DENSITY 2 SITES AXIAL [76379.1] (08/07/2022 2:42 PM CDT) Anatomical Region Laterality [...] to assess therapeutic efficacy. Elida Goddard PA-C [facility] 08/23/2022 Narrative 08/23/2022 12:44 PM CDT For Patients: Results are automatically released to your [facility] ([employer]) account once available, in compliance with federal regulations. This means that you may see your results before your provider has had a chance to review them. Please allow 2-3 business days for your provider to comment on the results. XR DXA Bone Mineral Density (BMD) EXAM LOCATION: [address] [address] PATIENT NAME: Trinh Méndez DATE OF : [...] two scanners are made by the same integration engineer. PROCEDURE: Dual-energy x-ray absorptiometry performed with routine [...] REFLEX MEASURED LDL (07/24/2022 11:47 AM CDT) [facility] CHOLESTEROL,TOTAL 185 100 - 199 mg/dL 07/25/2022 1:30 AM T [facility] Comment: Cholesterol, Total Reference Ranges Desirable <200 mg/dL Borderline 200-239 mg/dL High >=240 mg/dL TRIGLYCERIDES 60 <150 mg/dL 07/25/2022 1:30 AM CDT [facility] HDL CHOLESTEROL 67 >40 mg/dL 1:30 AM T [facility] NON-HDL CHOLESTEROL 118 <145 mg/dl 07/25/2022 1:30 AM CDT [facility] CHOL/HDL RATIO 2.76 <4.50 07/25/2022 1:30 AM CDT [facility] LDL CHOLESTEROL 106 <=130 mg/dL 07/25/2022 1:30 AM T [facility] VLDL CHOLESTEROL 12 <=30 mg/dL 07/25/2022 1:30 AM T [facility] PROVIDER ORDERED STATUS RANDOM 07/25/2022 1:30 AM CDT [facility] Blood BLOOD SPECIMEN / Unknown Venipuncture / Unknown 07/24/2022 11:47 AM CDT 07/24/2022 11:48 AM CDT us Chica Barboza MD CHEMISTRY Final Result [facility] [address] [place] [address], [place] * COLONOSCOPY (10/04/2021 10:35 AM CDT) [...] 10:35 AM Procedure Code(s): --- Professional --- 44066, Colonoscopy, flexible; with biopsy, single or multiple Diagnosis Code(s): --- Professional --- Z12.11, Encounter for screening formalignant neoplasm of colon D12.2, Benign neoplasm of ascending colon CPT copyright 2020 [employer]. All rights reserved. The codes documented in this report are preliminary and upon inspector and clerk reviewmay be revised to meet current compliance requirements. Scope In: 10:59:32 AM Scope Withdrawal Time 0 hours 9 minutes 19 seconds Scope Out: 11:21:35 AM us Arturo Silvestre MD PROCEDURE ORD Final Res ult from Last 3 Months or Most Recently Relevant to Health Maintenance Insurance [facility] MR Care Teams Stull Hewer Relationship Specialty Start Date End Date Chica Barboza MD [address] [place] [address] PCP - General Family Practice 06/21/21
--- OUTSIDE RECORDS SUMMARY | 2024-06-08 11:00 | XMS_ITS | Clinical Summary ---
Author Organization [facility] Address [address] [place] [address] Care Team Providers Care Web Content Director Name Role Phone Needs Pcp, Assignment Primary Care Provider [phone] Source Comments You are receiving this document as you are listed as the primary care provider,follow-up provider, or the patient has been referred to you for consultation.This is in compliance with the Medicare andOhio[facility] Hospitalca[facility] EHR Incentive Program,which states Providers who transition their patient to another setting of careor provider of care or refers their patient to another provider of care shouldprovide summary care record for each transition of care or referral. [employer] Allergies No known active allergies Medications * [...] synvisc series right 05/2013. 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 Not on file Not on file Last Filed Vital Signs Vital Sign Reading Time Taken Comments Blood Pressure 132/76 09/28/2020 9:48 AM CDT Pulse 68 09/28/2020 9:48 AM CDT Temperature 37.2 C (99 F) 03/19/2018 1:50 PM STACK CLERK Respiratory Rate 14 12/21/2015 12:49 PM CDT [...] BILAT W CAD Routine 01/27/2020 3:17 PM STACK CLERK Visit for screening mammogram HEPATITIS C ANTIBODY, [...] - 199 mg/dL 09/28/2020 1:02 PM CDT [facility] Triglyceride 59 <=149 mg/dL 09/28/2020 1:02 PM CDT [facility] HDL Cholesterol 72 >=40 mg/dL 1:02 PM CDT [facility] LDL, Calculated 104 <130 mg/dL 1:02 PM CDT [facility] Non HDL Chol, Calculated 116 <=159 mg/dL 09/28/2020 1:02 PM CDT [facility] Cholesterol/HDL Ratio 2.6 09/28/2020 1:02 PM CDT [facility] Hours Fasting 12 09/28/2020 1:02 PM CDT [facility] Blood Venipuncture / Unknown 09/28/2020 10:42 AM CDT 09/28/2020 10:42 AM CDT Basilia Mendez MD LAB_1 Final Resul t [facility] [address] [place], [place] [address] [address] [place] [address], [facility] [phone] * (ABNORMAL) Hemoglobin A1C Glycosylated (09/28/2020 10:42 AM CDT) Hemoglobin A1C 5.7(H) <=5.6 % 09/28/2020 8:36 PM CDT [facility] Blood Venipuncture / Unknown 09/28/2020 10:42 AM CDT 09/28/2020 10:42 AM CDT Narrative [facility] - 09/28/2020 8:36 PM CDT For patients not previously diagnosed with diabetes: 5.7-6.4%: Increased risk for diabetes 6.5% and greater: Diagnostic for diabetes For patients diagnosed with diabetes: <8.0%: Goal of therapy for ages 18-75 Clinicians may recommend a higher or lower goal for specific individuals. Basilia Mendez MD LAB_1 Final Resul t [facility] [address] [address], [facility] [phone] * MM Mammogram Screening Bilat W CAD (01/27/2020 3:17 PM STACK CLERK) Anatomical Region Laterality Modality Breast Bilateral Mammography Impressions 01/27/2020 3:28 PM STACK CLERK : ACR BI-RADS Category 1: Negative RECOMMENDATION: Follow Up Imaging in 12 months - Bilateral The results and recommendations of this examination will be communicated to the patient. Narrative 01/27/2020 3:28 PM STACK CLERK MM MAMMOGRAM SCREENING BILAT W CAD performed [...] - 09/19/2017 1:34 PM CDT Performed at [facility], [address] [place] [address] CLIA number [id number] Basilia Mendez MD LAB_1 Final Resul t SOFT [address] [place] [address] * DEXA Bone Density Spine/Hip (09/05/2015 11:49 AM CDT) Anatomical Region Laterality Modality Lower Extremity, Spine, Hip, L-Spine Other Narrative 09/07/2015 8:06 AM CDT CLINIC DXA REPORT Patient Name: Trinh Bucio Dev [place]: Deepak Campbell M.D. Densitometer: Cubicle W (S/N [id number]) - Bone 1 OSTEOPOROSIS RISK FACTORS FROM [...] Recently Relevant to Health Maintenance Insurance MEDICARE [facility] Advance Directives Documents on File Type Date Recorded Patient Office Assistant Expl anation Advance Directive/Living Will/Durable Power of Attny on file/POLST PN 01/06/2015 1:09 PM Care Teams Web Content Director Relationship Specialty Start Date End Date Needs Pcp, [place] [address] PCP - General 09/09/23
--- NOTE | 2024-06-08 11:21 | RESP.RT ---
Pt seen for peak flow measurement. Peak flow x3, 300,300,320 BBS decreased, scattered faint expiratory wheezing. No cough.
== END 2024-06-08 11:38 | disposition home or self-care (01) ==
PROVIDERS: Emergency Provider Family Medicine; PCP Family Medicine
DX: J06.9 Acute upper respiratory infection, unspecified (principal)
CPT/HCPCS: 71045; 87631; 99283; 99284